=== PATIENT | female | born 1935 | race Caucasian/White ===

== ENCOUNTER 2018-01-14 13:07 | Emergency (ER) | payer MEDICARE ==
[~2018-01-14] VITALS: Ht 166.4 cm; Wt 84.0 kg
[~2018-01-14 13:07] MED LIST: ASPI81TA52 PO; ATOR20TA PO; CLOP75TA35 PO; DIPH25CA83 PO; DULO-31 PO; HYDR-569 PO; LIDO700A32 TP; LIDO700A5 TP; MULT1TAB74 PO; NITR100C6 PO; TRAZ-143 PO
[2018-01-14 14:17] LABS: BASOPHILS # (AUTO) 0.2 X10'3 (0-0.2); BASOPHILS % (AUTO) 2.3 % (0-1); EOSINOPHILS # (AUTO) 0.1 X10'3 (0-0.9); EOSINOPHILS % (AUTO) 1.7 % (0-6); HEMATOCRIT 39.7 % (35.0-45.0); HEMOGLOBIN 13.8 g/dl (12.0-16.0); LYMPHOCYTES % (AUTO) 37.1 % (21-51); MEAN CORPUSCULAR HEMOGLOBIN 31.7 PG (27.0-31.0); MEAN CORPUSCULAR HGB CONC 34.6 % (33.0-36.5); MEAN CORPUSCULAR VOLUME 91.5 FL (78-98); MEAN PLATELET VOLUME 8.4 FL (7.4-10.4); MONOCYTES # (AUTO) 0.6 X10'3 (0-0.9); NEUTROPHILS # (AUTO) 4.2 X10'3 (1.8-7.7); NEUTROPHILS % (AUTO) 51.9 % (42-75); PLATELET COUNT 259 X10'3 (140-440); RED BLOOD COUNT 4.34 X10'6 (4.20-5.60); RED CELL DISTRIBUTION WIDTH 13.1 % (11.5-14.5); WHITE BLOOD COUNT 8.1 X10'3 (4.5-11.0)
[2018-01-14 14:21] LABS: PARTIAL THROMBOPLASTIN TIME 25 SECONDS (22-32)
[2018-01-14 14:28] LABS: ALANINE AMINOTRANSFERASE 19 U/L (12-78); ALBUMIN 4.2 G/DL (3.4-5.0); ALBUMIN/GLOBULIN RATIO 1.3 (1.1-1.5); ALKALINE PHOSPHATASE 70 IU/L (46-116); ANION GAP 9 (8-16); ASPARTATE AMINO TRANSFERASE 21 U/L (10-37); BILIRUBIN,TOTAL 0.5 MG/DL (0.1-1.0); BLOOD UREA NITROGEN 13 MG/DL (7-18); BUN/CREATININE RATIO 12.1 (6.6-38.0); CALCIUM 10.8 MG/DL (8.5-10.1); CHLORIDE 105 MMOL/L (99-107); CREATININE 1.07 MG/DL (0.40-0.90); GLUCOSE 96 MG/DL (70-104); POTASSIUM 4.1 MMOL/L (3.5-5.1); SODIUM 142 MMOL/L (135-145); TOTAL CARBON DIOXIDE 28.5 MMOL/L (24-32); TOTAL PROTEIN 7.5 G/DL (6.4-8.2); eGFR 49 ML/MIN
[2018-01-14 15:52] VITALS: BP 125/65
== END 2018-01-14 15:53 | disposition home or self-care (01) ==
LOC: ER 13:07
DX: L25.0 Unspecified contact dermatitis due to cosmetics (principal); G62.9 Polyneuropathy, unspecified; I25.10 Atherosclerotic heart disease of native coronary artery without angina pectoris; E78.00 Pure hypercholesterolemia, unspecified; G89.29 Other chronic pain; J44.9 Chronic obstructive pulmonary disease, unspecified; Z95.1 Presence of aortocoronary bypass graft; Z90.49 Acquired absence of other specified parts of digestive tract; Z79.82 Long term (current) use of aspirin; Z86.73 Personal history of transient ischemic attack (TIA), and cerebral infarction without residual deficits; Z79.899 Other long term (current) drug therapy; Z60.2 Problems related to living alone
CPT/HCPCS: 36415; 71045; 80053; 84484; 85025; 85610; 85730; 93005; 99285

== ENCOUNTER → 2018-03-24 | Emergency (ER) | payer MEDICARE, OTHER ==
[~2018-03-24] VITALS: Ht 166.4 cm; Wt 78.0 kg
[~2018-03-24] MED LIST changes: +AZIT500T5 PO; +TRIA15CR61 TOP
[2018-03-24 15:36] VITALS: BP 156/87
== END | disposition home or self-care (01) ==
LOC: ER 18:40
DX: B34.9 Viral infection, unspecified (principal); R05 Cough; J44.9 Chronic obstructive pulmonary disease, unspecified; G62.9 Polyneuropathy, unspecified; I25.10 Atherosclerotic heart disease of native coronary artery without angina pectoris; E78.00 Pure hypercholesterolemia, unspecified; G89.29 Other chronic pain; Z86.73 Personal history of transient ischemic attack (TIA), and cerebral infarction without residual deficits; Z95.1 Presence of aortocoronary bypass graft; Z90.49 Acquired absence of other specified parts of digestive tract; Z98.51 Tubal ligation status; Z79.82 Long term (current) use of aspirin; Z79.899 Other long term (current) drug therapy
CPT/HCPCS: 71045; 93005; 99284

== ENCOUNTER 2018-06-01 13:00 | Inpatient (IN) | payer MEDICARE, OTHER ==
[~2018-06-01] VITALS: Ht 167.6 cm; Wt 83.4 kg
[~2018-06-01 13:00] MED LIST changes: +GABA-530 PO; -TRIA15CR61 TOP
[2018-06-01] MEDS ORDERED: mag hydrox/Alum hydrox/simeth 30ml oral suspension PO PRN (14:10)
[2018-06-01] MEDS ORDERED: magnesium hydroxide 30ml (MOM) UD suspension PO PRN (14:10)
[2018-06-01] MEDS ORDERED: acetaminophen 325mg tablet PO PRN (14:10)
[2018-06-01 14:36] VITALS: BP 110/68
[2018-06-01 20:00] VITALS: BP 145/68
[2018-06-01] MEDS: duloxetine 30mg CAPSULE.DR PO SCH (20:56)
[2018-06-01] MEDS: gabapentin 100mg capsule PO SCH (20:56)
[2018-06-01 21:43] VITALS: BP 145/68
[2018-06-02 08:00] VITALS: BP 112/60
[2018-06-02] MEDS: gabapentin 100mg capsule PO SCH ×2 (08:19→20:33)
[2018-06-02] MEDS: clopidogrel 75mg tablet PO SCH (08:19)
[2018-06-02] MEDS: multivitamins, therapeutics tablet PO SCH (08:19)
[2018-06-02] MEDS: duloxetine 30mg CAPSULE.DR PO SCH ×2 (08:19→20:33)
[2018-06-02 08:50] LABS: HEMOGLOBIN A1C 5.5 % (4.5-6.2)
[2018-06-02 20:00] VITALS: BP 126/62
[2018-06-02] MEDS ORDERED: benztropine 1 mg/ml 2ml ampule IM SCH (22:00)
[2018-06-02] MEDS ORDERED: OLANZapine **IM** 10 mg inj. IM ONE (22:00)
[2018-06-03 08:00] VITALS: BP 140/92
[2018-06-03] MEDS: duloxetine 30mg CAPSULE.DR PO SCH ×2 (08:20→19:20)
[2018-06-03] MEDS: clopidogrel 75mg tablet PO SCH (08:20)
[2018-06-03] MEDS: gabapentin 100mg capsule PO SCH ×2 (08:20→19:21)
[2018-06-03] MEDS: multivitamins, therapeutics tablet PO SCH (08:21)
[2018-06-03] MEDS ORDERED: QUEtiapine 25mg tablet PO ONE (16:40)
[2018-06-03] MEDS ORDERED: QUEtiapine 25mg tablet PO SCH ×2 (19:00)
[2018-06-03] MEDS: temazepam 15mg capsule PO PRN (19:21)
[2018-06-03 20:26] VITALS: BP 133/65
[2018-06-04 08:00] VITALS: BP 138/68
[2018-06-04] MEDS: multivitamins, therapeutics tablet PO SCH (08:00)
[2018-06-04] MEDS: duloxetine 30mg CAPSULE.DR PO SCH ×2 (08:00→19:22)
[2018-06-04] MEDS: clopidogrel 75mg tablet PO SCH (08:00)
[2018-06-04] MEDS: gabapentin 100mg capsule PO SCH ×2 (08:00→19:22)
[2018-06-04] MEDS: QUEtiapine 25mg tablet PO SCH (19:22)
[2018-06-04 20:00] VITALS: BP 140/71
[2018-06-05] MEDS: duloxetine 30mg CAPSULE.DR PO SCH ×2 (07:51→19:15)
[2018-06-05] MEDS: gabapentin 100mg capsule PO SCH ×3 (07:53→19:16)
[2018-06-05] MEDS: QUEtiapine 25mg tablet PO SCH ×3 (07:54→19:15)
[2018-06-05] MEDS: clopidogrel 75mg tablet PO SCH ×2 (07:54→12:15)
[2018-06-05] MEDS: multivitamins, therapeutics tablet PO SCH ×2 (07:54→12:15)
[2018-06-05 08:00] VITALS: BP 122/64
[2018-06-05 19:00] VITALS: BP 161/76
[2018-06-06] MEDS: acetaminophen 325mg tablet PO PRN (02:05)
[2018-06-06 08:00] VITALS: BP 128/58
[2018-06-06] MEDS: duloxetine 30mg CAPSULE.DR PO SCH ×2 (08:24→19:59)
[2018-06-06] MEDS: multivitamins, therapeutics tablet PO SCH (08:25)
[2018-06-06] MEDS: gabapentin 100mg capsule PO SCH ×2 (08:26→19:59)
[2018-06-06] MEDS: clopidogrel 75mg tablet PO SCH (08:27)
[2018-06-06] MEDS: QUEtiapine 25mg tablet PO SCH ×2 (08:27→19:59)
[2018-06-06 19:00] VITALS: BP 128/65
[2018-06-06] MEDS: temazepam 15mg capsule PO PRN (23:06)
[2018-06-07 08:00] VITALS: BP 142/50
[2018-06-07] MEDS: clopidogrel 75mg tablet PO SCH ×2 (08:38→09:00)
[2018-06-07] MEDS: gabapentin 100mg capsule PO SCH ×3 (08:38→20:44)
[2018-06-07] MEDS: QUEtiapine 25mg tablet PO SCH ×3 (08:38→20:47)
[2018-06-07] MEDS: duloxetine 30mg CAPSULE.DR PO SCH ×2 (08:38→20:45)
[2018-06-07] MEDS: multivitamins, therapeutics tablet PO SCH ×2 (08:39→09:00)
[2018-06-07 19:51] VITALS: BP 140/67
[2018-06-07] MEDS: temazepam 15mg capsule PO PRN (20:44)
[2018-06-08 08:00] VITALS: BP 139/71
[2018-06-08] MEDS: QUEtiapine 25mg tablet PO SCH ×3 (08:00→19:00)
[2018-06-08] MEDS: gabapentin 100mg capsule PO SCH ×2 (08:00→20:00)
[2018-06-08] MEDS: multivitamins, therapeutics tablet PO SCH (08:00)
[2018-06-08] MEDS: clopidogrel 75mg tablet PO SCH (08:00)
[2018-06-08] MEDS: duloxetine 30mg CAPSULE.DR PO SCH ×2 (10:03→20:00)
[2018-06-08 20:00] VITALS: BP 144/72
[2018-06-08] MEDS: hydrOXYzine 25 MG tablet PO PRN ×2 (20:18→20:31)
[2018-06-08] MEDS ORDERED: OLANZapine 5mg rapidly disint. tablet PO ONE (21:30)
[2018-06-09] MEDS: clopidogrel 75mg tablet PO SCH (07:58)
[2018-06-09] MEDS: acetaminophen 325mg tablet PO PRN (07:58)
[2018-06-09] MEDS: multivitamins, therapeutics tablet PO SCH (07:58)
[2018-06-09] MEDS: duloxetine 30mg CAPSULE.DR PO SCH ×2 (07:58→19:43)
[2018-06-09] MEDS: gabapentin 100mg capsule PO SCH ×2 (07:58→19:43)
[2018-06-09] MEDS: QUEtiapine 25mg tablet PO SCH ×2 (07:58→19:43)
[2018-06-09 08:00] VITALS: BP 120/63
[2018-06-09 20:55] VITALS: BP 148/79
[2018-06-09] MEDS ORDERED: traZODone 50mg tablet PO ONE (21:00)
[2018-06-10 07:56] VITALS: BP 135/68
[2018-06-10] MEDS: clopidogrel 75mg tablet PO SCH (08:00)
[2018-06-10] MEDS: gabapentin 100mg capsule PO SCH ×2 (08:00→19:37)
[2018-06-10] MEDS: QUEtiapine 25mg tablet PO SCH (08:00)
[2018-06-10] MEDS: multivitamins, therapeutics tablet PO SCH (08:00)
[2018-06-10] MEDS: duloxetine 30mg CAPSULE.DR PO SCH ×2 (08:14→19:32)
[2018-06-10] MEDS: hydrOXYzine 25 MG tablet PO PRN (17:23)
[2018-06-10 20:00] VITALS: BP 139/64
[2018-06-10] MEDS ORDERED: QUEtiapine 25mg tablet PO SCH (20:00)
[2018-06-11 07:09] VITALS: BP 136/68
[2018-06-11] MEDS: duloxetine 30mg CAPSULE.DR PO SCH ×3 (08:00→19:04)
[2018-06-11] MEDS: clopidogrel 75mg tablet PO SCH ×2 (08:00→08:39)
[2018-06-11] MEDS: gabapentin 100mg capsule PO SCH ×3 (08:00→19:03)
[2018-06-11] MEDS: QUEtiapine 25mg tablet PO SCH ×3 (08:10→19:03)
[2018-06-11] MEDS: multivitamins, therapeutics tablet PO SCH (08:39)
[2018-06-11 19:00] VITALS: BP 116/57
[2018-06-11] MEDS: temazepam 15mg capsule PO PRN (19:03)
[2018-06-12 08:00] VITALS: BP 137/69
[2018-06-12] MEDS: duloxetine 30mg CAPSULE.DR PO SCH ×2 (09:26→20:10)
[2018-06-12] MEDS: multivitamins, therapeutics tablet PO SCH (09:26)
[2018-06-12] MEDS: clopidogrel 75mg tablet PO SCH (09:26)
[2018-06-12] MEDS: QUEtiapine 25mg tablet PO SCH (09:27)
[2018-06-12] MEDS: gabapentin 100mg capsule PO SCH ×2 (09:27→20:00)
[2018-06-12 19:56] VITALS: BP 121/64
[2018-06-13 08:00] VITALS: BP 114/56
[2018-06-13] MEDS: gabapentin 100mg capsule PO SCH ×2 (08:00→19:09)
[2018-06-13] MEDS: clopidogrel 75mg tablet PO SCH (08:00)
[2018-06-13] MEDS: duloxetine 30mg CAPSULE.DR PO SCH ×2 (08:03→19:06)
[2018-06-13] MEDS: multivitamins, therapeutics tablet PO SCH (08:04)
[2018-06-13 19:22] VITALS: BP 111/77
[2018-06-13] MEDS: temazepam 15mg capsule PO PRN (23:32)
[2018-06-14 08:00] VITALS: BP 121/61
[2018-06-14] MEDS: clopidogrel 75mg tablet PO SCH (08:00)
[2018-06-14] MEDS: gabapentin 100mg capsule PO SCH ×2 (08:00→20:15)
[2018-06-14] MEDS: duloxetine 30mg CAPSULE.DR PO SCH (08:02)
[2018-06-14] MEDS: multivitamins, therapeutics tablet PO SCH (08:03)
[2018-06-14 19:35] VITALS: BP 138/69
[2018-06-14] MEDS: ziprasidone 20mg capsule PO SCH (20:14)
[2018-06-14] MEDS: temazepam 15mg capsule PO PRN (20:15)
[2018-06-15] MEDS: pantoprazole 40mg Tablet.DR PO SCH ×2 (07:30→08:39)
[2018-06-15 08:00] VITALS: BP 143/62
[2018-06-15] MEDS: gabapentin 100mg capsule PO SCH ×3 (08:00→20:23)
[2018-06-15] MEDS: clopidogrel 75mg tablet PO SCH (08:39)
[2018-06-15] MEDS: duloxetine 30mg CAPSULE.DR PO SCH (08:39)
[2018-06-15] MEDS: multivitamins, therapeutics tablet PO SCH (08:39)
[2018-06-15 19:58] VITALS: BP 124/60
[2018-06-15] MEDS: temazepam 15mg capsule PO PRN (20:23)
[2018-06-15] MEDS: ziprasidone 20mg capsule PO SCH (20:23)
[2018-06-16] MEDS: pantoprazole 40mg Tablet.DR PO SCH (07:30)
[2018-06-16 08:00] VITALS: BP 112/51
[2018-06-16] MEDS: gabapentin 100mg capsule PO SCH ×2 (08:00→20:00)
[2018-06-16] MEDS: clopidogrel 75mg tablet PO SCH (08:18)
[2018-06-16] MEDS: duloxetine 30mg CAPSULE.DR PO SCH (08:18)
[2018-06-16] MEDS: multivitamins, therapeutics tablet PO SCH (08:19)
[2018-06-16 19:54] VITALS: BP 136/64
[2018-06-16] MEDS: temazepam 15mg capsule PO PRN (19:56)
[2018-06-16] MEDS: ziprasidone 20mg capsule PO SCH (21:17)
[2018-06-17] MEDS: pantoprazole 40mg Tablet.DR PO SCH (07:30)
[2018-06-17] MEDS: gabapentin 100mg capsule PO SCH (08:00)
[2018-06-17] MEDS: multivitamins, therapeutics tablet PO SCH (08:35)
[2018-06-17] MEDS: clopidogrel 75mg tablet PO SCH (08:36)
[2018-06-17] MEDS: duloxetine 30mg CAPSULE.DR PO SCH (08:36)
[2018-06-17 08:47] VITALS: BP 112/65
== END 2018-06-17 14:45 | disposition home or self-care (01) | DRG 885 ==
LOC: ADULT MH 13:00
PROVIDERS: ADMIT Psychiatry & Neurology Psychiatry; ATTEND Psychiatry & Neurology Psychiatry
DX: F29 Unspecified psychosis not due to a substance or known physiological condition (principal); F41.1 Generalized anxiety disorder; I25.10 Atherosclerotic heart disease of native coronary artery without angina pectoris; E78.5 Hyperlipidemia, unspecified; F32.9 Major depressive disorder, single episode, unspecified; E78.00 Pure hypercholesterolemia, unspecified; G62.9 Polyneuropathy, unspecified; G31.84 Mild cognitive impairment of uncertain or unknown etiology; G89.29 Other chronic pain; Z60.2 Problems related to living alone; M81.0 Age-related osteoporosis without current pathological fracture; M54.9 Dorsalgia, unspecified; I12.9 Hypertensive chronic kidney disease with stage 1 through stage 4 chronic kidney disease, or unspecified chronic kidney disease; J44.9 Chronic obstructive pulmonary disease, unspecified; N18.9 Chronic kidney disease, unspecified; Z77.22 Contact with and (suspected) exposure to environmental tobacco smoke (acute) (chronic); Z90.49 Acquired absence of other specified parts of digestive tract; Z98.51 Tubal ligation status; Z78.1 Physical restraint status; Z79.899 Other long term (current) drug therapy; Z79.82 Long term (current) use of aspirin; Z86.73 Personal history of transient ischemic attack (TIA), and cerebral infarction without residual deficits; Z87.891 Personal history of nicotine dependence; Z82.49 Family history of ischemic heart disease and other diseases of the circulatory system
CPT/HCPCS: 36415; 83036; 83721; 87070; J0515; Q0177

== ENCOUNTER 2018-07-11 17:28 | Inpatient (IN) | payer MEDICARE, MEDICAID ==
[~2018-07-11] VITALS: Ht 165.1 cm; Wt 165.0 kg
[~2018-07-11 17:28] MED LIST changes: -TRAZ-143 PO
[2018-07-11 19:19] LABS: CLARITY,URINE CLEAR (Clear); COLOR,URINE YELLOW (Yellow); GLUCOSE, URINE NEGATIVE (Neg); KETONES,URINE NEGATIVE (Neg); LEUKOCYTE ESTERASE ,URINE NEGATIVE (Neg); NITRITES, URINE NEGATIVE (Neg); OCCULT BLOOD,URINE NEGATIVE (Neg); PROTEIN,URINE NEGATIVE (Neg); UROBILINOGEN,URINE 0.2 E.U/dL (0.2-1.0)
[2018-07-11 19:23] LABS: UA COLLECTION TYPE CLN CATCH MIDSTREAM
[2018-07-11 19:30] LABS: URINE AMPHETAMINE SCREEN NEGATIVE (Neg); URINE BARBITUATE SCREEN NEGATIVE (Neg); URINE BENZODIAZEPINES SCREEN NEGATIVE (Neg); URINE CANNABINOID SCREEN NEGATIVE (Neg); URINE COCAINE SCREEN NEGATIVE (Neg); URINE METHADONE SCREEN NEGATIVE (Neg); URINE OPIATE SCREEN NEGATIVE (Neg); URINE PHENCYCLIDINE SCREEN NEGATIVE (Neg)
[2018-07-11 19:46] LABS: BASOPHILS % (AUTO) 0.5 % (0-1); EOSINOPHILS # (AUTO) 0.1 X10'3 (0-0.9); EOSINOPHILS % (AUTO) 1.2 % (0-6); HEMATOCRIT 37.3 % (35.0-45.0); HEMOGLOBIN 12.8 g/dl (12.0-16.0); LYMPHOCYTES # (AUTO) 2.5 X10'3 (1.1-4.8); LYMPHOCYTES % (AUTO) 31.9 % (21-51); MEAN CORPUSCULAR HEMOGLOBIN 31.4 PG (27.0-31.0); MEAN CORPUSCULAR HGB CONC 34.4 % (33.0-36.5); MEAN CORPUSCULAR VOLUME 91.3 FL (78-98); MEAN PLATELET VOLUME 8.5 FL (7.4-10.4); MONOCYTES # (AUTO) 0.6 X10'3 (0-0.9); MONOCYTES % (AUTO) 7.5 % (2-12); NEUTROPHILS # (AUTO) 4.6 X10'3 (1.8-7.7); NEUTROPHILS % (AUTO) 58.9 % (42-75); PLATELET COUNT 214 X10'3 (140-440); RED BLOOD COUNT 4.08 X10'6 (4.20-5.60); RED CELL DISTRIBUTION WIDTH 13.7 % (11.5-14.5); WHITE BLOOD COUNT 7.9 X10'3 (4.5-11.0)
[2018-07-11 20:03] LABS: ALANINE AMINOTRANSFERASE 17 U/L (12-78); ALBUMIN 3.5 G/DL (3.4-5.0); ALBUMIN/GLOBULIN RATIO 1.2 (1.1-1.5); ALKALINE PHOSPHATASE 76 IU/L (46-116); ANION GAP 11 (8-16); ASPARTATE AMINO TRANSFERASE 16 U/L (10-37); BILIRUBIN,TOTAL 0.2 MG/DL (0.1-1.0); BLOOD UREA NITROGEN 16 MG/DL (7-18); BUN/CREATININE RATIO 13.7 (6.6-38.0); CALCIUM 9.5 MG/DL (8.5-10.1); CHLORIDE 103 MMOL/L (99-107); CREATININE 1.17 MG/DL (0.40-0.90); GLUCOSE 160 MG/DL (70-104); POTASSIUM 3.7 MMOL/L (3.5-5.1); SODIUM 139 MMOL/L (135-145); TOTAL PROTEIN 6.4 G/DL (6.4-8.2); eGFR 44 ML/MIN
[2018-07-11 20:13] LABS: ETHANOL < 0.010 GM/DL (0.0-0.010)
[2018-07-11] MEDS ORDERED: magnesium 1gm/100ml D5W IVPB 100 ML IV PRN (22:25)
[2018-07-11] MEDS ORDERED: mag hydrox/Alum hydrox/simeth 30ml oral suspension PO PRN (22:25)
[2018-07-11] MEDS ORDERED: magnesium hydroxide 30ml (MOM) UD suspension PO PRN (22:25)
[2018-07-11] MEDS ORDERED: potassium Cl 20 mEq SR tablet PO PRN ×2 (22:25)
[2018-07-11] MEDS ORDERED: magnesium 4gm in 100ml NS 100 ML IV PRN (22:25)
[2018-07-11] MEDS ORDERED: ondansetron/PF 4mg/2ml inj IV PRN (22:25)
[2018-07-11] MEDS ORDERED: potassium Cl 40MEQ/NS 500ml 500 ML IV PRN ×2 (22:25)
[2018-07-11 23:30] VITALS: BP 120/57
[2018-07-12 06:00] VITALS: BP 113/53
[2018-07-12] MEDS: K and/or MAG REPLACEMENT MC SCH (08:00)
[2018-07-12] MEDS: multivitamins, therapeutics tablet PO SCH (08:54)
[2018-07-12] MEDS: duloxetine 30mg CAPSULE.DR PO SCH ×2 (08:54→20:09)
[2018-07-12] MEDS: gabapentin 100mg capsule PO SCH ×2 (08:54→20:09)
[2018-07-12] MEDS: aspirin 81mg tablet.DR PO SCH (08:54)
[2018-07-12] MEDS: atorvastatin 10mg tablet PO SCH (08:54)
[2018-07-12] MEDS: clopidogrel 75mg tablet PO SCH (08:54)
[2018-07-12 10:00] VITALS: BP 126/60
[2018-07-12 17:00] VITALS: BP 137/63
[2018-07-12 22:00] VITALS: BP 120/67
[2018-07-13 06:00] VITALS: BP 132/72
[2018-07-13 06:05] LABS: BASOPHILS # (AUTO) 0.1 X10'3 (0-0.2); BASOPHILS % (AUTO) 0.9 % (0-1); EOSINOPHILS # (AUTO) 0.2 X10'3 (0-0.9); EOSINOPHILS % (AUTO) 2.7 % (0-6); HEMATOCRIT 39.3 % (35.0-45.0); LYMPHOCYTES # (AUTO) 2.2 X10'3 (1.1-4.8); LYMPHOCYTES % (AUTO) 37.5 % (21-51); MEAN CORPUSCULAR HEMOGLOBIN 30.8 PG (27.0-31.0); MEAN CORPUSCULAR HGB CONC 33.1 % (33.0-36.5); MEAN PLATELET VOLUME 8.5 FL (7.4-10.4); MONOCYTES # (AUTO) 0.5 X10'3 (0-0.9); MONOCYTES % (AUTO) 9.3 % (2-12); NEUTROPHILS # (AUTO) 2.8 X10'3 (1.8-7.7); NEUTROPHILS % (AUTO) 49.6 % (42-75); PLATELET COUNT 206 X10'3 (140-440); RED BLOOD COUNT 4.22 X10'6 (4.20-5.60); RED CELL DISTRIBUTION WIDTH 12.7 % (11.5-14.5); WHITE BLOOD COUNT 5.8 X10'3 (4.5-11.0)
[2018-07-13 06:28] LABS: ALANINE AMINOTRANSFERASE 19 U/L (12-78); ALBUMIN 3.3 G/DL (3.4-5.0); ALBUMIN/GLOBULIN RATIO 1.1 (1.1-1.5); ALKALINE PHOSPHATASE 56 IU/L (46-116); ANION GAP 8 (8-16); ASPARTATE AMINO TRANSFERASE 12 U/L (10-37); BILIRUBIN,TOTAL 0.4 MG/DL (0.1-1.0); BLOOD UREA NITROGEN 13 MG/DL (7-18); BUN/CREATININE RATIO 13.8 (6.6-38.0); CALCIUM 8.9 MG/DL (8.5-10.1); CHLORIDE 105 MMOL/L (99-107); CHOL/HDL RATIO 2.2 (0.00-4.99); CHOLESTEROL 141 MG/DL (0-200); CREATININE 0.94 MG/DL (0.40-0.90); GLUCOSE 92 MG/DL (70-104); HDL CHOLESTEROL 65 MG/DL (35-60); LDL CHOLESTEROL 64 MG/DL (50-100); MAGNESIUM 2.1 MG/DL (1.5-2.4); POTASSIUM 4.1 MMOL/L (3.5-5.1); SODIUM 139 MMOL/L (135-145); TOTAL CARBON DIOXIDE 25.6 MMOL/L (24-32); TOTAL PROTEIN 6.2 G/DL (6.4-8.2); TRIGLYCERIDES 89 MG/DL (20-135); eGFR 57 ML/MIN
[2018-07-13] MEDS: K and/or MAG REPLACEMENT MC SCH (08:00)
[2018-07-13] MEDS: duloxetine 30mg CAPSULE.DR PO SCH ×2 (08:18→19:27)
[2018-07-13] MEDS: aspirin 81mg tablet.DR PO SCH (08:18)
[2018-07-13] MEDS: multivitamins, therapeutics tablet PO SCH (08:19)
[2018-07-13] MEDS: clopidogrel 75mg tablet PO SCH (08:19)
[2018-07-13] MEDS: atorvastatin 10mg tablet PO SCH (08:19)
[2018-07-13] MEDS: gabapentin 100mg capsule PO SCH ×2 (08:19→19:27)
[2018-07-13 10:00] VITALS: BP 126/46
[2018-07-13 17:00] VITALS: BP 110/66
[2018-07-13 22:00] VITALS: BP 111/52
[2018-07-14 06:00] VITALS: BP 125/66
[2018-07-14] MEDS: K and/or MAG REPLACEMENT MC SCH (08:00)
[2018-07-14] MEDS: atorvastatin 10mg tablet PO SCH (08:55)
[2018-07-14] MEDS: gabapentin 100mg capsule PO SCH ×2 (09:03→19:52)
[2018-07-14] MEDS: duloxetine 30mg CAPSULE.DR PO SCH ×2 (09:03→19:51)
[2018-07-14] MEDS: multivitamins, therapeutics tablet PO SCH (09:03)
[2018-07-14] MEDS: aspirin 81mg tablet.DR PO SCH (09:05)
[2018-07-14] MEDS: clopidogrel 75mg tablet PO SCH (09:05)
[2018-07-14 18:00] VITALS: BP 102/53
[2018-07-14 22:00] VITALS: BP 92/34
[2018-07-15 06:00] VITALS: BP 107/52
[2018-07-15] MEDS: duloxetine 30mg CAPSULE.DR PO SCH ×2 (07:49→20:24)
[2018-07-15] MEDS: gabapentin 100mg capsule PO SCH ×2 (07:49→20:00)
[2018-07-15] MEDS: aspirin 81mg tablet.DR PO SCH (07:49)
[2018-07-15] MEDS: multivitamins, therapeutics tablet PO SCH (07:50)
[2018-07-15] MEDS: atorvastatin 10mg tablet PO SCH (07:50)
[2018-07-15] MEDS: clopidogrel 75mg tablet PO SCH (07:50)
[2018-07-15] MEDS: K and/or MAG REPLACEMENT MC SCH (07:55)
[2018-07-15 10:00] VITALS: BP 168/57
[2018-07-15 18:00] VITALS: BP 128/57
[2018-07-15 22:00] VITALS: BP 118/55
[2018-07-16 06:00] VITALS: BP 118/61
[2018-07-16] MEDS: gabapentin 100mg capsule PO SCH ×2 (08:00→20:00)
[2018-07-16] MEDS: K and/or MAG REPLACEMENT MC SCH (08:00)
[2018-07-16] MEDS: atorvastatin 10mg tablet PO SCH (08:00)
[2018-07-16] MEDS: clopidogrel 75mg tablet PO SCH (08:00)
[2018-07-16] MEDS: duloxetine 30mg CAPSULE.DR PO SCH ×2 (08:46→20:07)
[2018-07-16] MEDS: multivitamins, therapeutics tablet PO SCH (08:46)
[2018-07-16] MEDS: aspirin 81mg tablet.DR PO SCH (08:47)
[2018-07-16 10:00] VITALS: BP 121/62
[2018-07-16 17:07] VITALS: BP 138/69
[2018-07-16 18:00] VITALS: BP 138/69
[2018-07-17] MEDS: gabapentin 100mg capsule PO SCH ×3 (08:00→20:00)
[2018-07-17] MEDS: clopidogrel 75mg tablet PO SCH ×2 (08:00→09:21)
[2018-07-17] MEDS: K and/or MAG REPLACEMENT MC SCH (08:00)
[2018-07-17] MEDS: atorvastatin 10mg tablet PO SCH ×2 (08:00→09:22)
[2018-07-17] MEDS: multivitamins, therapeutics tablet PO SCH (09:19)
[2018-07-17] MEDS: duloxetine 30mg CAPSULE.DR PO SCH ×2 (09:19→20:42)
[2018-07-17] MEDS: aspirin 81mg tablet.DR PO SCH (09:20)
[2018-07-17 10:00] VITALS: BP 107/56
[2018-07-17 18:00] VITALS: BP 136/70
[2018-07-17] MEDS: ziprasidone 20mg capsule PO SCH (20:00)
[2018-07-17 22:00] VITALS: BP 99/42
[2018-07-18 06:00] VITALS: BP 110/51
[2018-07-18] MEDS: atorvastatin 10mg tablet PO SCH (08:00)
[2018-07-18] MEDS: clopidogrel 75mg tablet PO SCH (08:00)
[2018-07-18] MEDS: K and/or MAG REPLACEMENT MC SCH (08:00)
[2018-07-18] MEDS: gabapentin 100mg capsule PO SCH ×2 (08:00→20:00)
[2018-07-18] MEDS: ziprasidone 20mg capsule PO SCH ×2 (08:00→20:00)
[2018-07-18] MEDS: aspirin 81mg tablet.DR PO SCH (08:23)
[2018-07-18] MEDS: duloxetine 30mg CAPSULE.DR PO SCH ×2 (08:23→20:15)
[2018-07-18] MEDS: multivitamins, therapeutics tablet PO SCH (08:23)
[2018-07-18 10:00] VITALS: BP 109/48
[2018-07-18 18:00] VITALS: BP 138/72
[2018-07-19 05:00] VITALS: BP 129/66
[2018-07-19] MEDS: K and/or MAG REPLACEMENT MC SCH (07:16)
[2018-07-19] MEDS: aspirin 81mg tablet.DR PO SCH (07:22)
[2018-07-19] MEDS: duloxetine 30mg CAPSULE.DR PO SCH ×2 (07:22→19:37)
[2018-07-19] MEDS: multivitamins, therapeutics tablet PO SCH (07:23)
[2018-07-19] MEDS: atorvastatin 10mg tablet PO SCH (07:23)
[2018-07-19] MEDS: gabapentin 100mg capsule PO SCH ×2 (07:26→20:00)
[2018-07-19] MEDS: ziprasidone 20mg capsule PO SCH ×2 (07:26→20:00)
[2018-07-19] MEDS: clopidogrel 75mg tablet PO SCH (07:27)
[2018-07-19 10:00] VITALS: BP 96/57
[2018-07-19 18:30] VITALS: BP 124/63
[2018-07-19 22:00] VITALS: BP 103/40
[2018-07-20 06:00] VITALS: BP 91/42
[2018-07-20] MEDS: atorvastatin 10mg tablet PO SCH (08:00)
[2018-07-20] MEDS: K and/or MAG REPLACEMENT MC SCH (08:00)
[2018-07-20] MEDS: clopidogrel 75mg tablet PO SCH (08:00)
[2018-07-20] MEDS: duloxetine 30mg CAPSULE.DR PO SCH ×2 (08:23→19:51)
[2018-07-20] MEDS: aspirin 81mg tablet.DR PO SCH (08:24)
[2018-07-20] MEDS: multivitamins, therapeutics tablet PO SCH (08:24)
[2018-07-20 08:29] LABS: BASOPHILS # (AUTO) 0.1 X10'3 (0-0.2); BASOPHILS % (AUTO) 1.1 % (0-1); EOSINOPHILS # (AUTO) 0.1 X10'3 (0-0.9); EOSINOPHILS % (AUTO) 1.5 % (0-6); HEMATOCRIT 42.1 % (35.0-45.0); HEMOGLOBIN 14.1 g/dl (12.0-16.0); LYMPHOCYTES # (AUTO) 1.9 X10'3 (1.1-4.8); LYMPHOCYTES % (AUTO) 30.1 % (21-51); MEAN CORPUSCULAR HEMOGLOBIN 30.9 PG (27.0-31.0); MEAN CORPUSCULAR HGB CONC 33.4 % (33.0-36.5); MEAN CORPUSCULAR VOLUME 92.6 FL (78-98); MEAN PLATELET VOLUME 8.6 FL (7.4-10.4); MONOCYTES # (AUTO) 0.4 X10'3 (0-0.9); MONOCYTES % (AUTO) 5.8 % (2-12); NEUTROPHILS # (AUTO) 3.8 X10'3 (1.8-7.7); NEUTROPHILS % (AUTO) 61.5 % (42-75); PLATELET COUNT 262 X10'3 (140-440); RED BLOOD COUNT 4.55 X10'6 (4.20-5.60); RED CELL DISTRIBUTION WIDTH 13.8 % (11.5-14.5); WHITE BLOOD COUNT 6.2 X10'3 (4.5-11.0)
[2018-07-20 08:44] LABS: ALANINE AMINOTRANSFERASE 16 U/L (12-78); ALBUMIN 3.7 G/DL (3.4-5.0); ALBUMIN/GLOBULIN RATIO 1.1 (1.1-1.5); ALKALINE PHOSPHATASE 73 IU/L (46-116); ANION GAP 11 (8-16); ASPARTATE AMINO TRANSFERASE 17 U/L (10-37); BILIRUBIN,TOTAL 0.4 MG/DL (0.1-1.0); BLOOD UREA NITROGEN 16 MG/DL (7-18); BUN/CREATININE RATIO 14.8 (6.6-38.0); CALCIUM 8.9 MG/DL (8.5-10.1); CHLORIDE 101 MMOL/L (99-107); CREATININE 1.08 MG/DL (0.40-0.90); GLUCOSE 164 MG/DL (70-104); POTASSIUM 4.1 MMOL/L (3.5-5.1); SODIUM 137 MMOL/L (135-145); TOTAL CARBON DIOXIDE 24.6 MMOL/L (24-32); TOTAL PROTEIN 7.1 G/DL (6.4-8.2); eGFR 48 ML/MIN
[2018-07-20 10:00] VITALS: BP 106/45
[2018-07-20 18:38] VITALS: BP 133/67
[2018-07-20 22:14] VITALS: BP 117/57
[2018-07-21 07:40] VITALS: BP 129/66
[2018-07-21] MEDS: clopidogrel 75mg tablet PO SCH (08:00)
[2018-07-21] MEDS: K and/or MAG REPLACEMENT MC SCH (08:00)
[2018-07-21] MEDS: atorvastatin 10mg tablet PO SCH (08:00)
[2018-07-21] MEDS: aspirin 81mg tablet.DR PO SCH (08:20)
[2018-07-21] MEDS: duloxetine 30mg CAPSULE.DR PO SCH ×2 (08:20→20:20)
[2018-07-21] MEDS: donepezil 5mg tablet PO SCH (08:20)
[2018-07-21] MEDS: multivitamins, therapeutics tablet PO SCH (08:21)
[2018-07-21 12:04] VITALS: BP 128/65
[2018-07-21] MEDS: enoxaparin 40mg/0.4ml syringe SUBCUT SCH (16:40)
[2018-07-21 18:30] VITALS: BP 149/78
[2018-07-21 22:00] VITALS: BP 118/67
[2018-07-22] MEDS: K and/or MAG REPLACEMENT MC SCH (08:00)
[2018-07-22] MEDS: enoxaparin 40mg/0.4ml syringe SUBCUT SCH (08:00)
[2018-07-22] MEDS: duloxetine 30mg CAPSULE.DR PO SCH ×2 (08:09→20:48)
[2018-07-22] MEDS: donepezil 5mg tablet PO SCH (08:09)
[2018-07-22] MEDS: aspirin 81mg tablet.DR PO SCH (08:11)
[2018-07-22] MEDS: clopidogrel 75mg tablet PO SCH (08:11)
[2018-07-22] MEDS: multivitamins, therapeutics tablet PO SCH (08:12)
[2018-07-22] MEDS: atorvastatin 10mg tablet PO SCH (08:12)
[2018-07-22 10:00] VITALS: BP 106/50
[2018-07-22 18:00] VITALS: BP 146/68
[2018-07-22] MEDS: temazepam 15mg capsule PO PRN (20:48)
[2018-07-22 22:00] VITALS: BP 107/50
[2018-07-23 05:00] VITALS: BP 115/58
[2018-07-23] MEDS: K and/or MAG REPLACEMENT MC SCH (08:00)
[2018-07-23] MEDS: duloxetine 30mg CAPSULE.DR PO SCH ×2 (08:19→20:19)
[2018-07-23] MEDS: atorvastatin 10mg tablet PO SCH (08:20)
[2018-07-23] MEDS: multivitamins, therapeutics tablet PO SCH (08:20)
[2018-07-23] MEDS: donepezil 5mg tablet PO SCH (08:20)
[2018-07-23] MEDS: aspirin 81mg tablet.DR PO SCH (08:21)
[2018-07-23] MEDS: clopidogrel 75mg tablet PO SCH (08:21)
[2018-07-23] MEDS: enoxaparin 40mg/0.4ml syringe SUBCUT SCH ×2 (08:22→08:26)
[2018-07-23 10:00] VITALS: BP 140/36
[2018-07-23 18:00] VITALS: BP 145/70
[2018-07-23 22:00] VITALS: BP 113/56
[2018-07-24 06:00] VITALS: BP 118/64
[2018-07-24] MEDS: K and/or MAG REPLACEMENT MC SCH (08:00)
[2018-07-24] MEDS: atorvastatin 10mg tablet PO SCH (09:39)
[2018-07-24] MEDS: duloxetine 30mg CAPSULE.DR PO SCH ×2 (09:39→19:38)
[2018-07-24] MEDS: clopidogrel 75mg tablet PO SCH (09:39)
[2018-07-24] MEDS: multivitamins, therapeutics tablet PO SCH (09:40)
[2018-07-24] MEDS: donepezil 5mg tablet PO SCH (09:40)
[2018-07-24] MEDS: aspirin 81mg tablet.DR PO SCH (09:40)
[2018-07-24] MEDS: enoxaparin 40mg/0.4ml syringe SUBCUT SCH ×3 (09:40→17:58)
[2018-07-24 10:00] VITALS: BP 117/60
[2018-07-24] MEDS ORDERED: DULO-31 PO (10:37)
[2018-07-24] MEDS ORDERED: ASPI81TA52 PO (10:37)
[2018-07-24] MEDS ORDERED: ATOR20TA PO (10:37)
[2018-07-24] MEDS ORDERED: DONE-46 PO (10:37)
[2018-07-24] MEDS ORDERED: CLOP75TA35 PO (10:37)
[2018-07-24 18:00] VITALS: BP 140/85
[2018-07-24 22:00] VITALS: BP 139/57
[2018-07-25] MEDS: K and/or MAG REPLACEMENT MC SCH (08:00)
[2018-07-25] MEDS: multivitamins, therapeutics tablet PO SCH (08:07)
[2018-07-25] MEDS: aspirin 81mg tablet.DR PO SCH (08:07)
[2018-07-25] MEDS: donepezil 5mg tablet PO SCH (08:08)
[2018-07-25] MEDS: clopidogrel 75mg tablet PO SCH (08:08)
[2018-07-25] MEDS: atorvastatin 10mg tablet PO SCH (08:08)
[2018-07-25] MEDS: duloxetine 30mg CAPSULE.DR PO SCH ×2 (08:08→20:00)
[2018-07-25 10:00] VITALS: BP 108/59
[2018-07-25 18:00] VITALS: BP 115/59
[2018-07-26 06:00] VITALS: BP 100/47
[2018-07-26] MEDS: K and/or MAG REPLACEMENT MC SCH (08:00)
[2018-07-26] MEDS: donepezil 5mg tablet PO SCH (08:02)
[2018-07-26] MEDS: aspirin 81mg tablet.DR PO SCH (08:03)
[2018-07-26] MEDS: duloxetine 30mg CAPSULE.DR PO SCH ×2 (08:03→20:52)
[2018-07-26] MEDS: atorvastatin 10mg tablet PO SCH (08:06)
[2018-07-26] MEDS: multivitamins, therapeutics tablet PO SCH (08:07)
[2018-07-26] MEDS: clopidogrel 75mg tablet PO SCH (08:07)
[2018-07-26 18:00] VITALS: BP 127/73
[2018-07-26 22:08] VITALS: BP 111/52
[2018-07-27] MEDS: duloxetine 30mg CAPSULE.DR PO SCH ×2 (07:09→20:32)
[2018-07-27] MEDS: clopidogrel 75mg tablet PO SCH (07:09)
[2018-07-27] MEDS: multivitamins, therapeutics tablet PO SCH (07:09)
[2018-07-27] MEDS: atorvastatin 10mg tablet PO SCH (07:09)
[2018-07-27] MEDS: donepezil 5mg tablet PO SCH (07:09)
[2018-07-27] MEDS: aspirin 81mg tablet.DR PO SCH (07:09)
[2018-07-27] MEDS: K and/or MAG REPLACEMENT MC SCH (08:00)
[2018-07-27 18:00] VITALS: BP 89/39
[2018-07-27] MEDS: temazepam 15mg capsule PO PRN (20:32)
[2018-07-28] MEDS: K and/or MAG REPLACEMENT MC SCH (08:00)
[2018-07-28] MEDS: atorvastatin 10mg tablet PO SCH (08:33)
[2018-07-28] MEDS: donepezil 5mg tablet PO SCH (08:33)
[2018-07-28] MEDS: aspirin 81mg tablet.DR PO SCH (08:33)
[2018-07-28] MEDS: duloxetine 30mg CAPSULE.DR PO SCH ×2 (08:33→19:48)
[2018-07-28] MEDS: clopidogrel 75mg tablet PO SCH (08:34)
[2018-07-28] MEDS: multivitamins, therapeutics tablet PO SCH (08:34)
[2018-07-28 10:00] VITALS: BP 118/51
[2018-07-28 18:00] VITALS: BP 144/73
[2018-07-28 22:00] VITALS: BP 106/50
[2018-07-28] MEDS: temazepam 15mg capsule PO PRN (23:50)
[2018-07-29 06:00] VITALS: BP 114/55
[2018-07-29] MEDS: K and/or MAG REPLACEMENT MC SCH (07:30)
[2018-07-29] MEDS: donepezil 5mg tablet PO SCH (08:23)
[2018-07-29] MEDS: aspirin 81mg tablet.DR PO SCH (08:23)
[2018-07-29] MEDS: clopidogrel 75mg tablet PO SCH (08:23)
[2018-07-29] MEDS: multivitamins, therapeutics tablet PO SCH (08:23)
[2018-07-29] MEDS: atorvastatin 10mg tablet PO SCH (08:23)
[2018-07-29] MEDS: duloxetine 30mg CAPSULE.DR PO SCH ×2 (08:23→19:09)
[2018-07-29 18:00] VITALS: BP 140/74
[2018-07-30 06:00] VITALS: BP 86/47
[2018-07-30] MEDS: K and/or MAG REPLACEMENT MC SCH (07:42)
[2018-07-30] MEDS: duloxetine 30mg CAPSULE.DR PO SCH ×2 (07:49→21:33)
[2018-07-30] MEDS: donepezil 5mg tablet PO SCH (07:49)
[2018-07-30] MEDS: atorvastatin 10mg tablet PO SCH (07:50)
[2018-07-30] MEDS: clopidogrel 75mg tablet PO SCH (07:50)
[2018-07-30] MEDS: aspirin 81mg tablet.DR PO SCH (07:50)
[2018-07-30] MEDS: multivitamins, therapeutics tablet PO SCH (07:50)
[2018-07-30 10:00] VITALS: BP 157/79
[2018-07-30 18:00] VITALS: BP 114/48
[2018-07-30 22:00] VITALS: BP 128/64
[2018-07-31] MEDS: K and/or MAG REPLACEMENT MC SCH (08:00)
[2018-07-31] MEDS: donepezil 5mg tablet PO SCH (10:12)
[2018-07-31] MEDS: duloxetine 30mg CAPSULE.DR PO SCH ×2 (10:12→19:46)
[2018-07-31] MEDS: atorvastatin 10mg tablet PO SCH (10:12)
[2018-07-31] MEDS: clopidogrel 75mg tablet PO SCH (10:12)
[2018-07-31] MEDS: multivitamins, therapeutics tablet PO SCH (10:12)
[2018-07-31] MEDS: aspirin 81mg tablet.DR PO SCH (10:12)
[2018-07-31 18:00] VITALS: BP 129/68
[2018-08-01] MEDS: K and/or MAG REPLACEMENT MC SCH (08:00)
[2018-08-01] MEDS: donepezil 5mg tablet PO SCH (08:04)
[2018-08-01] MEDS: aspirin 81mg tablet.DR PO SCH (08:05)
[2018-08-01] MEDS: clopidogrel 75mg tablet PO SCH (08:05)
[2018-08-01] MEDS: atorvastatin 10mg tablet PO SCH (08:05)
[2018-08-01] MEDS: multivitamins, therapeutics tablet PO SCH (08:05)
[2018-08-01] MEDS: duloxetine 30mg CAPSULE.DR PO SCH ×2 (08:05→20:06)
[2018-08-01 10:20] VITALS: BP 117/72
[2018-08-01 18:00] VITALS: BP 151/76
[2018-08-01 22:00] VITALS: BP 105/51
[2018-08-02 06:00] VITALS: BP 106/54
[2018-08-02] MEDS: K and/or MAG REPLACEMENT MC SCH (08:00)
[2018-08-02] MEDS: aspirin 81mg tablet.DR PO SCH (08:21)
[2018-08-02] MEDS: donepezil 5mg tablet PO SCH (08:21)
[2018-08-02] MEDS: clopidogrel 75mg tablet PO SCH (08:21)
[2018-08-02] MEDS: multivitamins, therapeutics tablet PO SCH (08:21)
[2018-08-02] MEDS: duloxetine 30mg CAPSULE.DR PO SCH ×2 (08:21→19:01)
[2018-08-02] MEDS: atorvastatin 10mg tablet PO SCH (08:21)
[2018-08-02 10:00] VITALS: BP 128/67
[2018-08-02 18:00] VITALS: BP 101/56
[2018-08-02] MEDS: acetaminophen 325mg tablet PO PRN (22:15)
[2018-08-03] MEDS: aspirin 81mg tablet.DR PO SCH (07:54)
[2018-08-03] MEDS: multivitamins, therapeutics tablet PO SCH (07:55)
[2018-08-03] MEDS: duloxetine 30mg CAPSULE.DR PO SCH ×2 (07:55→19:41)
[2018-08-03] MEDS: atorvastatin 10mg tablet PO SCH (08:00)
[2018-08-03] MEDS: donepezil 5mg tablet PO SCH (08:00)
[2018-08-03] MEDS: K and/or MAG REPLACEMENT MC SCH (08:00)
[2018-08-03] MEDS: clopidogrel 75mg tablet PO SCH (08:00)
[2018-08-03 10:00] VITALS: BP 122/47
[2018-08-03 18:00] VITALS: BP 157/74
[2018-08-03] MEDS: acetaminophen 325mg tablet PO PRN (20:16)
[2018-08-03 21:46] VITALS: BP 140/69
[2018-08-04] MEDS: temazepam 15mg capsule PO PRN ×2 (00:13→23:05)
[2018-08-04] MEDS: multivitamins, therapeutics tablet PO SCH (07:56)
[2018-08-04] MEDS: donepezil 5mg tablet PO SCH (07:56)
[2018-08-04] MEDS: clopidogrel 75mg tablet PO SCH (07:56)
[2018-08-04] MEDS: duloxetine 30mg CAPSULE.DR PO SCH ×2 (07:56→19:44)
[2018-08-04] MEDS: aspirin 81mg tablet.DR PO SCH (07:56)
[2018-08-04] MEDS: atorvastatin 10mg tablet PO SCH (07:56)
[2018-08-04] MEDS: K and/or MAG REPLACEMENT MC SCH (08:00)
[2018-08-04 10:00] VITALS: BP 120/59
[2018-08-04 22:00] VITALS: BP 105/49
[2018-08-05 06:00] VITALS: BP 107/52
[2018-08-05] MEDS: K and/or MAG REPLACEMENT MC SCH (08:00)
[2018-08-05] MEDS: donepezil 5mg tablet PO SCH (08:34)
[2018-08-05] MEDS: duloxetine 30mg CAPSULE.DR PO SCH ×2 (08:35→19:42)
[2018-08-05] MEDS: clopidogrel 75mg tablet PO SCH (08:36)
[2018-08-05] MEDS: aspirin 81mg tablet.DR PO SCH (08:36)
[2018-08-05] MEDS: atorvastatin 10mg tablet PO SCH (08:37)
[2018-08-05] MEDS: multivitamins, therapeutics tablet PO SCH (08:37)
[2018-08-05 10:00] VITALS: BP 99/56
[2018-08-05 18:00] VITALS: BP 125/61
[2018-08-06] MEDS: K and/or MAG REPLACEMENT MC SCH (08:00)
[2018-08-06] MEDS: atorvastatin 10mg tablet PO SCH (08:00)
[2018-08-06] MEDS: multivitamins, therapeutics tablet PO SCH (08:49)
[2018-08-06] MEDS: aspirin 81mg tablet.DR PO SCH (08:49)
[2018-08-06] MEDS: duloxetine 30mg CAPSULE.DR PO SCH ×2 (08:49→19:37)
[2018-08-06] MEDS: clopidogrel 75mg tablet PO SCH (08:51)
[2018-08-06] MEDS: donepezil 5mg tablet PO SCH (08:53)
[2018-08-06 10:00] VITALS: BP 115/56
[2018-08-06 18:00] VITALS: BP 108/64
[2018-08-07] MEDS: K and/or MAG REPLACEMENT MC SCH (08:00)
[2018-08-07] MEDS: multivitamins, therapeutics tablet PO SCH (08:43)
[2018-08-07] MEDS: aspirin 81mg tablet.DR PO SCH (08:43)
[2018-08-07] MEDS: duloxetine 30mg CAPSULE.DR PO SCH (08:43)
[2018-08-07] MEDS: atorvastatin 10mg tablet PO SCH (08:44)
[2018-08-07] MEDS: clopidogrel 75mg tablet PO SCH (08:45)
[2018-08-07] MEDS: donepezil 5mg tablet PO SCH (08:46)
[2018-08-07 10:00] VITALS: BP 117/54
== END 2018-08-07 15:09 | disposition home health service (06) | DRG 71 ==
LOC: ER 17:29 → ED HOLD 22:21 → ORTHO 4S 23:29
PROVIDERS: ADMIT Family Medicine; ATTEND Internal Medicine
DX: G93.40 Encephalopathy, unspecified (principal); F03.91 Unspecified dementia, unspecified severity, with behavioral disturbance; F05 Delirium due to known physiological condition; I67.82 Cerebral ischemia; E78.00 Pure hypercholesterolemia, unspecified; F41.9 Anxiety disorder, unspecified; G62.9 Polyneuropathy, unspecified; Z60.2 Problems related to living alone; G89.29 Other chronic pain; M54.9 Dorsalgia, unspecified; E78.5 Hyperlipidemia, unspecified; I12.9 Hypertensive chronic kidney disease with stage 1 through stage 4 chronic kidney disease, or unspecified chronic kidney disease; N18.9 Chronic kidney disease, unspecified; F32.9 Major depressive disorder, single episode, unspecified; I25.10 Atherosclerotic heart disease of native coronary artery without angina pectoris; J44.9 Chronic obstructive pulmonary disease, unspecified; Z59.0 Homelessness; Z90.49 Acquired absence of other specified parts of digestive tract; Z98.51 Tubal ligation status; Z88.8 Allergy status to other drugs, medicaments and biological substances; Z79.02 Long term (current) use of antithrombotics/antiplatelets; Z79.82 Long term (current) use of aspirin; Z79.899 Other long term (current) drug therapy; Z87.891 Personal history of nicotine dependence; Z86.73 Personal history of transient ischemic attack (TIA), and cerebral infarction without residual deficits; Z82.49 Family history of ischemic heart disease and other diseases of the circulatory system
CPT/HCPCS: 36415; 70450; 70544; 70551; 71045; 80053; 80061; 80305; 80320; 81003; 83735; 84443; 85025; 87070; 92616; 93005; 99285; A6258; J1650

== ENCOUNTER 2018-08-19 14:55 | Emergency (ER) | payer MEDICARE, MEDICAID ==
[~2018-08-19 14:55] MED LIST changes: -AZIT500T5 PO; -DIPH25CA83 PO; +DONE-46 PO; -GABA-530 PO; -HYDR-569 PO; -LIDO700A32 TP; -LIDO700A5 TP; -MULT1TAB74 PO; -NITR100C6 PO
[2018-08-19 15:10] VITALS: BP 157/83
[2018-08-19 15:46] LABS: CLARITY,URINE SLIGHTLY CLOUDY (Clear); COLOR,URINE YELLOW (Yellow); GLUCOSE, URINE NEGATIVE (Neg); KETONES,URINE NEGATIVE (Neg); LEUKOCYTE ESTERASE ,URINE TRACE (Neg); NITRITES, URINE NEGATIVE (Neg); OCCULT BLOOD,URINE TRACE-INTACT (Neg); PROTEIN,URINE NEGATIVE (Neg); UROBILINOGEN,URINE 0.2 E.U/dL (0.2-1.0)
[2018-08-19 15:47] LABS: UA COLLECTION TYPE VOIDED
[2018-08-19 16:03] LABS: RBC,URINE NONE SEEN /HPF (0-2)
[2018-08-19 16:04] LABS: BACTERIA,URINE 1+ /HPF (Neg); SQUAMOUS EPITHELIAL CELL,UR FEW /LPF (FEW)
[2018-08-19 16:17] LABS: HEMATOCRIT 41.8 % (35.0-45.0); HEMOGLOBIN 13.9 g/dl (12.0-16.0); MEAN CORPUSCULAR HEMOGLOBIN 30.5 PG (27.0-31.0); MEAN CORPUSCULAR HGB CONC 33.3 % (33.0-36.5); MEAN CORPUSCULAR VOLUME 91.7 FL (78-98); MEAN PLATELET VOLUME 8.7 FL (7.4-10.4); PLATELET COUNT 289 X10'3 (140-440); RED BLOOD COUNT 4.56 X10'6 (4.20-5.60); RED CELL DISTRIBUTION WIDTH 13.4 % (11.5-14.5); WHITE BLOOD COUNT 14.7 X10'3 (4.5-11.0)
[2018-08-19 16:19] LABS: ALANINE AMINOTRANSFERASE 24 U/L (12-78); ALBUMIN 4.2 G/DL (3.4-5.0); ALBUMIN/GLOBULIN RATIO 1.1 (1.1-1.5); ALKALINE PHOSPHATASE 98 IU/L (46-116); ANION GAP 11 (8-16); ASPARTATE AMINO TRANSFERASE 24 U/L (10-37); BILIRUBIN,TOTAL 0.6 MG/DL (0.1-1.0); BLOOD UREA NITROGEN 11 MG/DL (7-18); BUN/CREATININE RATIO 12.2 (6.6-38.0); CALCIUM 9.7 MG/DL (8.5-10.1); CHLORIDE 101 MMOL/L (99-107); GLUCOSE 121 MG/DL (70-104); POTASSIUM 3.8 MMOL/L (3.5-5.1); SODIUM 140 MMOL/L (135-145); TOTAL CARBON DIOXIDE 28.5 MMOL/L (24-32); TOTAL CELLS COUNTED 100; eGFR 60 ML/MIN
[2018-08-19 16:20] LABS: PLATELET ESTIMATE NORMAL
[2018-08-19] MEDS ORDERED: CEPH-572 PO (16:49)
== END 2018-08-19 17:26 | disposition home or self-care (01) ==
LOC: ER 14:56
DX: N39.0 Urinary tract infection, site not specified (principal); R60.0 Localized edema; G62.9 Polyneuropathy, unspecified; I25.10 Atherosclerotic heart disease of native coronary artery without angina pectoris; E78.00 Pure hypercholesterolemia, unspecified; J44.9 Chronic obstructive pulmonary disease, unspecified; G89.29 Other chronic pain; Z87.891 Personal history of nicotine dependence; Z86.73 Personal history of transient ischemic attack (TIA), and cerebral infarction without residual deficits; Z95.5 Presence of coronary angioplasty implant and graft; Z90.49 Acquired absence of other specified parts of digestive tract; Z98.51 Tubal ligation status; Z98.890 Other specified postprocedural states; Z79.82 Long term (current) use of aspirin; Z79.899 Other long term (current) drug therapy
CPT/HCPCS: 36415; 80053; 81001; 85025; 87088; 99284

== ENCOUNTER 2018-08-21 14:11 | Emergency (ER) | payer MEDICARE, MEDICAID ==
[~2018-08-21] VITALS: Ht 165.1 cm; Wt 79.5 kg
[~2018-08-21 14:11] MED LIST changes: +CEPH-572 PO
[2018-08-21 14:18] VITALS: BP 117/58
[2018-08-21] MEDS ORDERED: ketorolac tromethamine 15mg/ml inj. IM ONE (14:45)
== END 2018-08-21 16:29 | disposition home or self-care (01) ==
LOC: ER 14:12
DX: S76.011A Strain of muscle, fascia and tendon of right hip, initial encounter (principal); I25.10 Atherosclerotic heart disease of native coronary artery without angina pectoris; E78.00 Pure hypercholesterolemia, unspecified; J44.9 Chronic obstructive pulmonary disease, unspecified; G89.29 Other chronic pain; Z86.73 Personal history of transient ischemic attack (TIA), and cerebral infarction without residual deficits; Z90.49 Acquired absence of other specified parts of digestive tract; Z98.61 Coronary angioplasty status; Z79.82 Long term (current) use of aspirin; Z79.2 Long term (current) use of antibiotics; Z79.899 Other long term (current) drug therapy; Z60.2 Problems related to living alone; W10.9XXA Fall (on) (from) unspecified stairs and steps, initial encounter; Y93.89 Activity, other specified; Y92.89 Other specified places as the place of occurrence of the external cause; Y99.8 Other external cause status
CPT/HCPCS: 96372; 99284; J1885

== ENCOUNTER 2018-08-24 10:24 | Emergency (ER) | payer MEDICARE, MEDICAID ==
[~2018-08-24] VITALS: Ht 160 cm; Wt 68.2 kg
[2018-08-24] MEDS ORDERED: TRAM50TA2 PO (11:29)
[2018-08-24] MEDS ORDERED: traMADol 50MG tablet PO ONE (11:40)
[2018-08-24 12:18] VITALS: BP 138/71
== END 2018-08-24 12:28 | disposition home or self-care (01) ==
LOC: ER 10:26
DX: M54.5 Low back pain (principal); G89.29 Other chronic pain; J44.9 Chronic obstructive pulmonary disease, unspecified; I25.10 Atherosclerotic heart disease of native coronary artery without angina pectoris; E78.00 Pure hypercholesterolemia, unspecified; F41.9 Anxiety disorder, unspecified; F32.9 Major depressive disorder, single episode, unspecified; F03.90 Unspecified dementia, unspecified severity, without behavioral disturbance, psychotic disturbance, mood disturbance, and anxiety; G62.9 Polyneuropathy, unspecified; Z86.73 Personal history of transient ischemic attack (TIA), and cerebral infarction without residual deficits; Z90.49 Acquired absence of other specified parts of digestive tract; Z98.51 Tubal ligation status; Z98.62 Peripheral vascular angioplasty status; Z79.82 Long term (current) use of aspirin; Z79.899 Other long term (current) drug therapy
CPT/HCPCS: 99283

== ENCOUNTER 2018-08-26 12:23 | Emergency (ER) | payer MEDICARE, MEDICAID ==
[~2018-08-26] VITALS: Ht 162.6 cm; Wt 85.0 kg
[~2018-08-26 12:23] MED LIST changes: +TRAM50TA2 PO
[2018-08-26 12:28] VITALS: BP 118/66
== END 2018-08-26 14:12 | disposition home or self-care (01) ==
LOC: ER 12:23
DX: G89.29 Other chronic pain (principal); M54.5 Low back pain; J06.9 Acute upper respiratory infection, unspecified; I25.10 Atherosclerotic heart disease of native coronary artery without angina pectoris; E78.00 Pure hypercholesterolemia, unspecified; J44.9 Chronic obstructive pulmonary disease, unspecified; G62.9 Polyneuropathy, unspecified; Z86.73 Personal history of transient ischemic attack (TIA), and cerebral infarction without residual deficits; Z95.5 Presence of coronary angioplasty implant and graft; Z59.0 Homelessness; Z90.49 Acquired absence of other specified parts of digestive tract; Z98.51 Tubal ligation status; Z98.890 Other specified postprocedural states; Z79.82 Long term (current) use of aspirin; Z79.899 Other long term (current) drug therapy
CPT/HCPCS: 99284

== ENCOUNTER 2018-11-11 12:59 | Emergency (ER) | payer MEDICARE, MEDICAID ==
[~2018-11-11] VITALS: Ht 167.6 cm; Wt 80.4 kg
[~2018-11-11 12:59] MED LIST changes: -CEPH-572 PO; -TRAM50TA2 PO
[2018-11-11 13:44] VITALS: BP 125/62
[2018-11-11] MEDS ORDERED: DULO-31 PO (17:08)
[2018-11-11] MEDS ORDERED: LORazepam 1 MG tablet PO ONE (17:10)
== END 2018-11-11 17:30 | disposition home or self-care (01) ==
LOC: ER 13:00
DX: F41.9 Anxiety disorder, unspecified (principal); I25.10 Atherosclerotic heart disease of native coronary artery without angina pectoris; E78.00 Pure hypercholesterolemia, unspecified; J44.9 Chronic obstructive pulmonary disease, unspecified; G89.29 Other chronic pain; F32.9 Major depressive disorder, single episode, unspecified; Z98.61 Coronary angioplasty status; Z90.49 Acquired absence of other specified parts of digestive tract; Z98.51 Tubal ligation status; Z98.890 Other specified postprocedural states; Z86.73 Personal history of transient ischemic attack (TIA), and cerebral infarction without residual deficits; Z87.891 Personal history of nicotine dependence; Z79.82 Long term (current) use of aspirin; Z79.899 Other long term (current) drug therapy
CPT/HCPCS: 99284

== ENCOUNTER 2018-12-08 13:51 | Emergency (ER) | payer MEDICARE, MEDICAID ==
[~2018-12-08] VITALS: Ht 167.6 cm; Wt 70.5 kg
[2018-12-08 15:03] VITALS: BP 138/98
[2018-12-08 16:26] LABS: BASOPHILS # (AUTO) 0.1 X10'3 (0-0.2); BASOPHILS % (AUTO) 1.2 % (0-1); EOSINOPHILS # (AUTO) 0.3 X10'3 (0-0.9); EOSINOPHILS % (AUTO) 3.9 % (0-6); HEMOGLOBIN 13.9 g/dl (12.0-16.0); LYMPHOCYTES # (AUTO) 2.5 X10'3 (1.1-4.8); LYMPHOCYTES % (AUTO) 35.1 % (21-51); MEAN CORPUSCULAR HEMOGLOBIN 30.4 PG (27.0-31.0); MEAN CORPUSCULAR VOLUME 92.2 FL (78-98); MEAN PLATELET VOLUME 8.3 FL (7.4-10.4); MONOCYTES # (AUTO) 0.7 X10'3 (0-0.9); MONOCYTES % (AUTO) 9.9 % (2-12); NEUTROPHILS # (AUTO) 3.6 X10'3 (1.8-7.7); NEUTROPHILS % (AUTO) 49.9 % (42-75); PLATELET COUNT 304 X10'3 (140-440); RED BLOOD COUNT 4.56 X10'6 (4.20-5.60); RED CELL DISTRIBUTION WIDTH 14.2 % (11.5-14.5); WHITE BLOOD COUNT 7.1 X10'3 (4.5-11.0)
[2018-12-08 16:41] LABS: ALANINE AMINOTRANSFERASE 22 U/L (12-78); ALBUMIN 3.9 G/DL (3.4-5.0); ALBUMIN/GLOBULIN RATIO 1.1 (1.1-1.5); ALKALINE PHOSPHATASE 95 IU/L (46-116); ANION GAP 10 (8-16); ASPARTATE AMINO TRANSFERASE 18 U/L (10-37); BILIRUBIN,TOTAL 0.3 MG/DL (0.1-1.0); BLOOD UREA NITROGEN 14 MG/DL (7-18); BUN/CREATININE RATIO 13.1 (6.6-38.0); CALCIUM 9.7 MG/DL (8.5-10.1); CHLORIDE 102 MMOL/L (99-107); CREATININE 1.07 MG/DL (0.40-0.90); GLUCOSE 107 MG/DL (70-104); POTASSIUM 4.1 MMOL/L (3.5-5.1); SODIUM 141 MMOL/L (135-145); TOTAL CARBON DIOXIDE 29.3 MMOL/L (24-32); TOTAL PROTEIN 7.5 G/DL (6.4-8.2); eGFR 49 ML/MIN
[2018-12-08 16:52] LABS: ETHANOL < 0.010 GM/DL (0.0-0.010)
[2018-12-08 17:53] LABS: CLARITY,URINE SLIGHTLY CLOUDY (Clear); COLOR,URINE STRAW (Yellow); GLUCOSE, URINE NEGATIVE (Neg); KETONES,URINE NEGATIVE (Neg); LEUKOCYTE ESTERASE ,URINE SMALL (Neg); NITRITES, URINE NEGATIVE (Neg); OCCULT BLOOD,URINE NEGATIVE (Neg); PROTEIN,URINE NEGATIVE (Neg); UROBILINOGEN,URINE 0.2 E.U/dL (0.2-1.0)
[2018-12-08 17:58] LABS: UA COLLECTION TYPE CLN CATCH MIDSTREAM
[2018-12-08 18:03] LABS: MUCUS STRANDS FEW /LPF (Neg); SQUAMOUS EPITHELIAL CELL,UR MODERATE /LPF (FEW); TRANSITIONAL EPI CELLS,URINE FEW /HPF
[2018-12-08 18:04] LABS: CAL OXALATE CRYSTALS 4+ /HPF (NEGATIVE); URINE AMPHETAMINE SCREEN NEGATIVE (Neg); URINE BARBITUATE SCREEN NEGATIVE (Neg); URINE BENZODIAZEPINES SCREEN NEGATIVE (Neg); URINE CANNABINOID SCREEN NEGATIVE (Neg); URINE COCAINE SCREEN NEGATIVE (Neg); URINE METHADONE SCREEN NEGATIVE (Neg); URINE OPIATE SCREEN NEGATIVE (Neg); URINE PHENCYCLIDINE SCREEN NEGATIVE (Neg)
[2018-12-08 18:05] LABS: BACTERIA,URINE FEW /HPF (Neg)
[2018-12-08 18:06] LABS: RBC,URINE 0-2 /HPF (0-2); WBC,URINE 0-4 /HPF (0-4)
--- NOTE | 2018-12-08 18:13 | NUR ---
PT. IS GETTING UPSET THAT SHE IS STILL HERE WAITING FOR THE MENTAL HEALTH WORKER. [facility] HAS BEEN NOTIFIED THAT THE PT. HAS DISCHARGE ARANGEMENTS ALREADY MADE BY OUR SOSAL SERVICES TO HAVE THE PT. PLACED AT [facility]..... MULTIPLE CALLS MADE TO NATHAN AT [facility] SHE WAS GOING TO TELL JAY TO CALL US SO I COULD EXPLAIN THE FULL SCENARIO TO HIM... WAITED FOR 1.5 HOURS NO CALL. PT. IS NOW WOUNDERING AND NOT WANTING TO STAY IN THE DEPARTMENT OR HER ROOM.
--- NOTE | 2018-12-08 19:35 | NUR ---
PT WANDERING IN HALLWAY REDIRECTED TO OVERFLOW WITH SITTERS. AWAITING DISCHARGE FROM [facility].
== END 2018-12-08 20:39 | disposition home or self-care (01) ==
LOC: ER 13:52
DX: F99 Mental disorder, not otherwise specified (principal); F03.90 Unspecified dementia, unspecified severity, without behavioral disturbance, psychotic disturbance, mood disturbance, and anxiety; I25.10 Atherosclerotic heart disease of native coronary artery without angina pectoris; E78.00 Pure hypercholesterolemia, unspecified; J44.9 Chronic obstructive pulmonary disease, unspecified; G89.29 Other chronic pain; F41.9 Anxiety disorder, unspecified; F32.9 Major depressive disorder, single episode, unspecified; G62.9 Polyneuropathy, unspecified; Z95.5 Presence of coronary angioplasty implant and graft; Z90.49 Acquired absence of other specified parts of digestive tract; Z98.51 Tubal ligation status; Z98.890 Other specified postprocedural states; Z79.899 Other long term (current) drug therapy; Z79.82 Long term (current) use of aspirin
CPT/HCPCS: 36415; 80053; 80305; 80320; 81001; 84443; 85025; 99285